=== PATIENT | male | born 1940 | race Caucasian/White ===

== ENCOUNTER → 2022-06-20 08:48 | Outpatient (BNVA) | payer MEDICARE, BC, SELFPAY | PROVIDERS: Visit Provider Physician Assistant | DX: M51.37 Other intervertebral disc degeneration, lumbosacral region (principal); M47.816 Spondylosis without myelopathy or radiculopathy, lumbar region | CPT/HCPCS: 72110; 99203; 99204 ==

== ENCOUNTER 2022-08-03 07:34 | Outpatient (CLI) | payer MEDICARE, BC, SELFPAY ==
--- NOTE | 2022-08-03 08:00 | MR_ITS ---
WS: [id number] MRI LUMBAR SPINE NONCONTRAST HISTORY: pain, chronic pain down LEFT leg. COMPARISON: Radiographs 06/20/2022 TECHNIQUE: Sagittal and axial multisequence imaging is submitted. 2 mm retrolisthesis of C3 and C4. Moderate RIGHT curvature with asymmetric disc space narrowing in the lumbar spine. Marked narrowing of the disc spaces with osteophytic ridging around the vertebral bodies. No fracture s. Conus terminates normally at L1. L1-L2: Diffuse osteophytic ridging and asymmetric facet joint arthritis. LEFT facet joint arthritis e ncroaches into the LEFT lateral thecal sac and foramen. Mild bilateral foraminal stenosis and mild LE FT subarticular recess stenosis. L2-L3: Diffuse asymmetric disc bulging greatest to the LEFT. Mild RIGHT and moderate LEFT facet joint arthritis. Mild foraminal stenosis. L3-L4: Diffuse annular disc bulging with ligamentum flavum and facet arthritis. Mild central, bilater al subarticular recess and foraminal stenosis. L4-L5: Diffuse annular disc bulging with ligamentum flavum hypertrophy and facet arthritis. Moderate RIGHT foraminal stenosis. Very mild encroachment upon the subarticular recesses. L5-S1: Mild annular disc bulging and osteophytic ridging. Mild facet arthritis. Mild bilateral forami nal stenosis. Small cyst in the LEFT kidney. MR/MR lumbar spine wo con* [id number] IMPRESSION: 1. 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 2. No high-grade central stenosis. 3. Multilevel subarticular and foraminal stenosis predominantly due to osteoph yte and disc disease and exacerbated by the scoliosis and facet disease. 4. Moderate RIGHT foraminal stenosis at L4-5 with mild bilateral subarticular recess stenosis. 5. Mild bilateral foraminal and subarticular recess stenosis at L1-2. 6. Mild foraminal stenosis at L2-3 and L5-S1. 7. Mild central, bilateral subarticular recess and foraminal stenosis at L3-4.
== END 2022-08-03 07:35 | disposition home or self-care (01) ==
PROVIDERS: PCP Family Medicine; Visit Provider Physician Assistant
DX: M48.07 Spinal stenosis, lumbosacral region (principal); M41.9 Scoliosis, unspecified
CPT/HCPCS: 72148

== ENCOUNTER → 2022-08-10 15:10 | Outpatient (BNVA) | payer MEDICARE, BC, SELFPAY | PROVIDERS: PCP Family Medicine; Visit Provider Orthopaedic Surgery | DX: M51.46 Schmorl's nodes, lumbar region (principal) | CPT/HCPCS: 99214 ==